=== PATIENT | female | born 1935 | race Caucasian/White ===

== ENCOUNTER → 2017-04-23 | Outpatient (CLI) | payer MEDICAID, MEDICARE ==
[~2017-04-23] MED LIST: AMLO10TA2 PO; ASPI-515 PO; CHOL5000 PO; CYAN100074 PO; DEXL60CA2 PO; GLIM1TAB2 PO; KRIL500C PO; L.AC1CAP6 PO; UBID50TA3 PO; VITA400C42 PO; biotin PO; magnesium PO; potassium PO
== END | disposition home or self-care (01) ==
LOC: CFH 13:53
PROVIDERS: ATTEND Internal Medicine Cardiovascular Disease
DX: I08.2 Rheumatic disorders of both aortic and tricuspid valves (principal); I10 Essential (primary) hypertension; Z95.5 Presence of coronary angioplasty implant and graft; Z87.891 Personal history of nicotine dependence
CPT/HCPCS: 93306

== ENCOUNTER → 2018-01-08 | Outpatient (CLI) | payer MEDICARE | END | disposition home or self-care (01) | LOC: CFH 07:37 | PROVIDERS: ATTEND Internal Medicine Gastroenterology | DX: K21.9 Gastro-esophageal reflux disease without esophagitis (principal); R10.13 Epigastric pain | CPT/HCPCS: 76700 ==

== ENCOUNTER → 2018-02-05 | Outpatient (CLI) | payer MEDICARE ==
[~2018-02-05] MED LIST changes: -AMLO10TA2 PO; +AMLO10TA6 PO
== END | disposition home or self-care (01) ==
LOC: PETCFH 08:24
PROVIDERS: ATTEND Internal Medicine Gastroenterology
DX: R93.3 Abnormal findings on diagnostic imaging of other parts of digestive tract (principal)
CPT/HCPCS: 78264; A9541

== ENCOUNTER 2018-04-13 09:48 | Emergency (ER) | payer MEDICARE ==
[~2018-04-13] VITALS: Ht 162.6 cm; Wt 58.1 kg
[2018-04-13] MEDS ORDERED: SODIUM CHLORIDE FLUSH 10ML SYR IVF ONE (11:00)
[2018-04-13] MEDS ORDERED: ASPIRIN 81 MG TABLET CHEW PO ONE (11:00)
[2018-04-13] MEDS ORDERED: NITROGLYCERIN SINGLE TAB 0.4 MG SL PRN (11:00)
[2018-04-13] MEDS ORDERED: ASPIRIN 81 MG TABLET CHEW ONE (11:06)
[2018-04-13 11:12] LABS: ALANINE AMINOTRANSFERASE 16 U/L (12-78); ALBUMIN 3.8 g/dL (3.4-5.0); ANION GAP 9 mmol/L (5-15); CALCIUM 10.4 mg/dL (8.5-10.1); CHLORIDE 107 mmol/L (98-107); CREATININE 0.75 mg/dL (0.55-1.02)
[2018-04-13 11:14] LABS: INTERNATIONAL NORMALIZED RATIO 0.96 (0.93-1.1)
[2018-04-13 11:16] LABS: ALKALINE PHOSPHATASE 142 U/L (45-117); BILIRUBIN,TOTAL 0.5 mg/dL (0.2-1.0); TOTAL PROTEIN 7.3 g/dL (6.4-8.2); TROPONIN I < 0.015 ng/mL (0.000-0.045)
[2018-04-13] MEDS ORDERED: NITROGLYCERIN SINGLE TAB 0.4 MG SL ONE (11:36)
[2018-04-13 11:39] LABS: BASOPHILS # (AUTO) 0.03 x10^3/uL (0-0.1); BASOPHILS % (AUTO) 0 % (0-1); EOSINOPHILS # (AUTO) 0.11 x10^3/uL (0-0.4); EOSINOPHILS % (AUTO) 2 % (1-7); LYMPHOCYTES # (AUTO) 1.94 x10^3/uL (1-3.4); LYMPHOCYTES % (AUTO) 29 % (22-44); MD NO; MEAN CORPUSCULAR HEMOGLOBIN 31.9 pg (27.0-34.8); MEAN CORPUSCULAR HGB CONC 34.7 g/dL (32.4-35.8); MEAN CORPUSCULAR VOLUME 91.9 fL (80-100); MEAN PLATELET VOLUME 9.7 fL (7.4-10.4); MONOCYTES # (AUTO) 0.49 x10^3/uL (0.2-0.8); MONOCYTES % (AUTO) 7 % (2-9); NEUTROPHILS # (AUTO) 4.21 x10^3/uL (1.8-6.8); NEUTROPHILS % (AUTO) 62 % (42-75); PLATELET COUNT 311 x10^3/uL (130-400); RED BLOOD COUNT 4.41 x10^6/uL (3.82-5.3); RED CELL DISTRIBUTION WIDTH 13.3 % (9.6-15.2)
[2018-04-13 11:53] VITALS: BP 166/75
== END 2018-04-13 12:48 | disposition home or self-care (01) ==
LOC: ED 12:42
DX: R07.89 Other chest pain (principal); J06.9 Acute upper respiratory infection, unspecified; R06.00 Dyspnea, unspecified; I25.2 Old myocardial infarction; I25.10 Atherosclerotic heart disease of native coronary artery without angina pectoris; I10 Essential (primary) hypertension; E11.9 Type 2 diabetes mellitus without complications
CPT/HCPCS: 36415; 71045; 80053; 83880; 84484; 85025; 85610; 85730; 93005; 99285

== ENCOUNTER → 2018-04-15 | Outpatient (CLI) | payer MEDICARE | END | disposition home or self-care (01) | LOC: CFH 15:33 | PROVIDERS: ATTEND Internal Medicine Cardiovascular Disease | DX: I35.0 Nonrheumatic aortic (valve) stenosis (principal); I10 Essential (primary) hypertension; I25.2 Old myocardial infarction; I25.10 Atherosclerotic heart disease of native coronary artery without angina pectoris; E11.8 Type 2 diabetes mellitus with unspecified complications; Z87.891 Personal history of nicotine dependence | CPT/HCPCS: 93306 ==

== ENCOUNTER 2018-04-23 13:21 | Emergency (ER) | payer MEDICARE ==
[~2018-04-23] VITALS: Ht 162.6 cm; Wt 55.0 kg
[2018-04-23] MEDS ORDERED: SODIUM CHLORIDE FLUSH 10ML SYR IVF ONE (14:00)
[2018-04-23 14:03] LABS: BASOPHILS # (AUTO) 0.06 x10^3/uL (0-0.1); BASOPHILS % (AUTO) 1 % (0-1); EOSINOPHILS # (AUTO) 0.02 x10^3/uL (0-0.4); EOSINOPHILS % (AUTO) 0 % (1-7); LYMPHOCYTES # (AUTO) 1.88 x10^3/uL (1-3.4); LYMPHOCYTES % (AUTO) 18 % (22-44); MD NO; MEAN CORPUSCULAR HEMOGLOBIN 31.4 pg (27.0-34.8); MEAN CORPUSCULAR HGB CONC 34.2 g/dL (32.4-35.8); MEAN CORPUSCULAR VOLUME 91.8 fL (80-100); MEAN PLATELET VOLUME 9.5 fL (7.4-10.4); MONOCYTES % (AUTO) 7 % (2-9); NEUTROPHILS # (AUTO) 7.96 x10^3/uL (1.8-6.8); NEUTROPHILS % (AUTO) 74 % (42-75); PLATELET COUNT 376 x10^3/uL (130-400); RED BLOOD COUNT 5.02 x10^6/uL (3.82-5.3); RED CELL DISTRIBUTION WIDTH 13.2 % (9.6-15.2)
[2018-04-23 14:13] LABS: ALANINE AMINOTRANSFERASE 16 U/L (12-78); ALBUMIN 3.9 g/dL (3.4-5.0); ANION GAP 11 mmol/L (5-15); CALCIUM 10.9 mg/dL (8.5-10.1); CHLORIDE 101 mmol/L (98-107); CREATININE 1.13 mg/dL (0.55-1.02)
[2018-04-23 14:18] LABS: ALKALINE PHOSPHATASE 153 U/L (45-117); BILIRUBIN,TOTAL 0.6 mg/dL (0.2-1.0); TROPONIN I 0.052 ng/mL (0.000-0.045)
[2018-04-23] MEDS ORDERED: OMNIPAQUE 350 MG/ML, 100ML BOTTLE ONE (14:20)
[2018-04-23 16:00] VITALS: BP 152/77
== END 2018-04-23 16:02 | disposition home or self-care (01) ==
LOC: ED 13:37
DX: R06.00 Dyspnea, unspecified (principal); C34.32 Malignant neoplasm of lower lobe, left bronchus or lung; E11.9 Type 2 diabetes mellitus without complications; I10 Essential (primary) hypertension; I25.2 Old myocardial infarction; I25.10 Atherosclerotic heart disease of native coronary artery without angina pectoris
CPT/HCPCS: 36415; 71045; 71275; 80053; 83880; 84484; 85025; 93005; 99284; Q9967

== ENCOUNTER 2018-05-07 10:47 | Day surgery (SDC) | payer MEDICARE ==
[~2018-05-07] VITALS: Ht 162.6 cm; Wt 55.0 kg
[2018-05-07] MEDS ORDERED: SODIUM CHLORIDE 0.9% 1,000 ML IV SCH (11:30)
[2018-05-07 12:03] VITALS: BP 176/74
[2018-05-07] MEDS ORDERED: TURM538C PO (12:03)
[2018-05-07] MEDS ORDERED: LOSARTAN POTASSIUM PO (12:11)
[2018-05-07] MEDS ORDERED: FENTANYL PF 100 MCG/2ML ONE ×2 (12:41→12:42)
[2018-05-07] MEDS ORDERED: MIDAZOLAM 1 MG/ML, 5ML ONE (12:41)
[2018-05-07] MEDS ORDERED: LIDOCAINE 2%, 20ML ONE (15:03)
== END 2018-05-07 15:50 | disposition home or self-care (01) ==
LOC: OUT 10:47
PROVIDERS: ATTEND Internal Medicine
DX: C34.02 Malignant neoplasm of left main bronchus (principal); I10 Essential (primary) hypertension; I25.10 Atherosclerotic heart disease of native coronary artery without angina pectoris; I35.0 Nonrheumatic aortic (valve) stenosis; Z87.891 Personal history of nicotine dependence; F10.21 Alcohol dependence, in remission; Z79.82 Long term (current) use of aspirin; Z79.899 Other long term (current) drug therapy; Z88.6 Allergy status to analgesic agent; Z98.890 Other specified postprocedural states; Z95.5 Presence of coronary angioplasty implant and graft
CPT/HCPCS: 31625; 82962; 88172; 88173; 88305; 99152; 99153; J2250; J3010; J3490; J7030

== ENCOUNTER → 2018-05-14 | Outpatient (CLI) | payer MEDICARE, OTHER ==
[~2018-05-14] MED LIST changes: +LOSARTAN POTASSIUM PO; +TURM538C PO
== END | disposition home or self-care (01) ==
LOC: ROC 08:48
PROVIDERS: ATTEND Radiology Radiation Oncology
DX: C34.90 Malignant neoplasm of unspecified part of unspecified bronchus or lung (principal); I25.10 Atherosclerotic heart disease of native coronary artery without angina pectoris; M19.90 Unspecified osteoarthritis, unspecified site; E11.9 Type 2 diabetes mellitus without complications; K21.9 Gastro-esophageal reflux disease without esophagitis; M81.0 Age-related osteoporosis without current pathological fracture; R63.0 Anorexia; R53.83 Other fatigue
CPT/HCPCS: 99214; G0463

== ENCOUNTER → 2018-05-22 | Outpatient (CLI) | payer MEDICARE ==
[~2018-05-22] MED LIST changes: +GADOBUTROL 7.5 MMOL/7.5 ML PFS ONE
== END | disposition home or self-care (01) ==
LOC: RAD 16:28
PROVIDERS: ATTEND Internal Medicine
DX: G31.9 Degenerative disease of nervous system, unspecified (principal); C34.32 Malignant neoplasm of lower lobe, left bronchus or lung; R91.8 Other nonspecific abnormal finding of lung field; I50.9 Heart failure, unspecified; E11.9 Type 2 diabetes mellitus without complications
CPT/HCPCS: 70553; A9585

== ENCOUNTER 2018-06-03 10:23 | Day surgery (SDC) | payer MEDICARE ==
[~2018-06-03] VITALS: Ht 152.4 cm; Wt 54.4 kg
[~2018-06-03 10:23] MED LIST changes: -GADOBUTROL 7.5 MMOL/7.5 ML PFS ONE
[2018-06-03 10:56] VITALS: BP 166/74
[2018-06-03] MEDS ORDERED: SODIUM CHLORIDE 0.9% 1,000 ML IV SCH (11:00)
[2018-06-03] MEDS ORDERED: CEFAZOLIN PMX 1GM/50ML 50 ML IV ONE (11:00)
[2018-06-03] MEDS ORDERED: LIDOCAINE-MPF 1%, 5ML ONE (11:23)
[2018-06-03] MEDS ORDERED: NALOXONE 1 MG/ML, 2ML ONE (13:21)
[2018-06-03] MEDS ORDERED: MIDAZOLAM 1 MG/ML, 5ML ONE (13:21)
[2018-06-03] MEDS ORDERED: FLUMAZENIL 0.1 MG/1 ML, 5ML ONE (13:21)
[2018-06-03] MEDS ORDERED: FENTANYL PF 100 MCG/2ML ONE (13:21)
== END 2018-06-03 16:15 | disposition home or self-care (01) ==
LOC: OUT 10:23
PROVIDERS: ATTEND Internal Medicine Hematology & Oncology
DX: Z45.2 Encounter for adjustment and management of vascular access device (principal); C34.90 Malignant neoplasm of unspecified part of unspecified bronchus or lung; I25.10 Atherosclerotic heart disease of native coronary artery without angina pectoris; I35.0 Nonrheumatic aortic (valve) stenosis; I10 Essential (primary) hypertension; E11.9 Type 2 diabetes mellitus without complications; Z79.82 Long term (current) use of aspirin; Z79.899 Other long term (current) drug therapy; Z88.6 Allergy status to analgesic agent; Z98.890 Other specified postprocedural states
CPT/HCPCS: 36561; 76937; 77001; 99156; 99157; C1788; C1894; J0690; J1642; J2250; J3010; J7030; J2310

== ENCOUNTER 2018-08-07 07:34 | Outpatient (CLI) | payer MEDICARE ==
[~2018-08-07 07:34] MED LIST changes: -AMLO10TA6 PO; +AMLO10TA8 PO
== END 2018-08-07 23:59 | disposition home or self-care (01) ==
LOC: ROC 07:34
PROVIDERS: ATTEND Radiology Radiation Oncology
DX: Z08 Encounter for follow-up examination after completed treatment for malignant neoplasm (principal); C34.32 Malignant neoplasm of lower lobe, left bronchus or lung
CPT/HCPCS: 99212; G0463

== ENCOUNTER 2018-08-24 10:11 | Outpatient (CLI) | payer MEDICARE | END 2018-08-24 23:59 | disposition home or self-care (01) | LOC: CVU 10:11 | PROVIDERS: ATTEND Internal Medicine Cardiovascular Disease | DX: Z02.9 Encounter for administrative examinations, unspecified (principal) ==

== ENCOUNTER → 2018-09-09 | Outpatient (CLI) | payer MEDICARE ==
[~2018-09-09] MED LIST changes: +OMNIPAQUE 350 MG/ML, 100ML BOTTLE ONE
== END | disposition home or self-care (01) ==
LOC: CFH 09:09
PROVIDERS: ATTEND Internal Medicine Hematology & Oncology
DX: M48.54XA Collapsed vertebra, not elsewhere classified, thoracic region, initial encounter for fracture (principal); M51.36 Other intervertebral disc degeneration, lumbar region; K44.9 Diaphragmatic hernia without obstruction or gangrene; C34.82 Malignant neoplasm of overlapping sites of left bronchus and lung
CPT/HCPCS: 71260; 74177; Q9967

== ENCOUNTER → 2018-10-01 | Outpatient (CLI) | payer MEDICARE ==
[~2018-10-01] MED LIST changes: -OMNIPAQUE 350 MG/ML, 100ML BOTTLE ONE
== END | disposition home or self-care (01) ==
LOC: RAD 16:25
PROVIDERS: ATTEND Internal Medicine Hematology & Oncology
DX: C34.31 Malignant neoplasm of lower lobe, right bronchus or lung (principal); R60.0 Localized edema

== ENCOUNTER → 2018-10-14 | Outpatient (CLI) | payer MEDICARE | END | disposition home or self-care (01) | LOC: RAD 12:10 | PROVIDERS: ATTEND Internal Medicine Hematology & Oncology | DX: C34.82 Malignant neoplasm of overlapping sites of left bronchus and lung (principal); R91.8 Other nonspecific abnormal finding of lung field; K44.9 Diaphragmatic hernia without obstruction or gangrene | CPT/HCPCS: 71046 ==

== ENCOUNTER → 2018-11-09 | Outpatient (CLI) | payer MEDICARE | END | disposition home or self-care (01) | LOC: ROC 09:53 → EDSTATUS 06-01 16:42 | PROVIDERS: ATTEND Radiology Radiation Oncology | DX: C34.32 Malignant neoplasm of lower lobe, left bronchus or lung (principal); Z79.899 Other long term (current) drug therapy | CPT/HCPCS: 99212; G0463 ==

== ENCOUNTER 2019-01-04 11:58 | Outpatient (CLI) | payer MEDICARE | END 2019-01-04 23:59 | disposition home or self-care (01) | LOC: CFH 11:58 | PROVIDERS: ATTEND Internal Medicine Hematology & Oncology | DX: C34.82 Malignant neoplasm of overlapping sites of left bronchus and lung (principal); J90 Pleural effusion, not elsewhere classified; K44.9 Diaphragmatic hernia without obstruction or gangrene; R59.0 Localized enlarged lymph nodes; R91.8 Other nonspecific abnormal finding of lung field; M48.54XA Collapsed vertebra, not elsewhere classified, thoracic region, initial encounter for fracture | CPT/HCPCS: 71260; 74177; Q9967 ==

== ENCOUNTER 2019-01-10 10:43 | Emergency (ER) | payer MEDICARE ==
[~2019-01-10] VITALS: Ht 154.9 cm; Wt 47.8 kg
[2019-01-10 12:20] VITALS: BP 123/69
== END 2019-01-10 13:09 | disposition home or self-care (01) ==
LOC: ED 11:34
DX: J15.9 Unspecified bacterial pneumonia (principal); J20.9 Acute bronchitis, unspecified; R07.2 Precordial pain; I25.10 Atherosclerotic heart disease of native coronary artery without angina pectoris; I10 Essential (primary) hypertension; E11.9 Type 2 diabetes mellitus without complications; I25.2 Old myocardial infarction; Z85.118 Personal history of other malignant neoplasm of bronchus and lung
CPT/HCPCS: 36415; 71045; 80048; 82040; 84484; 85025; 93005; 99284

== ENCOUNTER 2019-04-09 09:16 | Emergency (ER) | payer MEDICARE ==
[~2019-04-09] VITALS: Ht 154.9 cm; Wt 51.8 kg
[~2019-04-09 09:16] MED LIST changes: -GLIM1TAB2 PO; +GLIM1TAB3 PO
--- NOTE | 2019-04-09 09:56 | NUR ---
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
--- NOTE | 2019-04-09 10:20 | NUR ---
THIS IS A 84 YO FEMALE WHO PRESENTS TO THE ER C/O LEFT SIDED EPISTAXSIS THAT HAS NOW RESOLVED AND N/V THIS MORNING. PT HAS SLIGHTLY SHALLOW BREATHING, BUT REGULAR AND UNLABORED. PT ABLE TO SPEAK IN FULL 5-7 WORD SENTENCES W/O DIFFICULTY. PT CURRENTLY DENIES NAUSEA. PT AO X 4. SKIN PWD. PT ON CONT BP, CARDIAC AND O2 MONITORS. CALL LIGHT WITHIN REACH.
[2019-04-09] MEDS ORDERED: SODIUM CHLORIDE FLUSH 10ML SYR IVF ONE (10:30)
--- NOTE | 2019-04-09 11:08 | NUR ---
PT CURRENTLY RESTING ON GURNEY. NAD NOTED. SKIN PWD. RESP SLIGHTLY SHALLOW, BUT EVEN AND UNLABORED. PT AWARE WE ARE WAITING FOR LAB/IMAGING RESULTS. FAMILY AT BEDSIDE. PT ON CONT BP, CARDIAC AND O2 MONITORS. CALL LIGHT WITHIN REACH. WILL CONT TO MONITOR PT.
[2019-04-09 11:24] LABS: MEAN CORPUSCULAR HEMOGLOBIN 32.2 pg (27.0-34.8); MEAN CORPUSCULAR HGB CONC 33.5 g/dL (32.4-35.8); MEAN CORPUSCULAR VOLUME 96.2 fL (80-100); MEAN PLATELET VOLUME 7.9 fL (7.4-10.4); PLATELET COUNT 220 x10^3/uL (130-400); RED BLOOD COUNT 3.71 x10^6/uL (3.82-5.3); RED CELL DISTRIBUTION WIDTH 15.4 % (9.6-15.2)
[2019-04-09 11:28] LABS: INTERNATIONAL NORMALIZED RATIO 0.95 (0.93-1.1)
[2019-04-09 11:30] LABS: ALBUMIN 3.5 g/dL (3.4-5.0); ANION GAP 6 mmol/L (5-15); CHLORIDE 108 mmol/L (98-107)
[2019-04-09 11:37] LABS: CREATININE 0.52 mg/dL (0.55-1.02); TROPONIN I < 0.015 ng/mL (0.000-0.045)
[2019-04-09 12:09] LABS: MD YES
[2019-04-09 12:13] LABS: BAND#(MANUAL) 0.57 x10^3/uL; BANDS%(MANUAL) 22 % (0-7); EOS#(MANUAL) 0.08 x10^3/uL (0.0-0.4); EOS% (MANUAL) 3 % (1-7); LYMPH#(MANUAL) 0.36 x10^3/uL (1-3.4); LYMPHS% (MANUAL) 14 % (22-44); MONOS#(MANUAL) 0.31 x10^3/uL (0.3-2.7); MONOS% (MANUAL) 12 % (2-9); SEG#(MANUAL) 1.27 x10^3/uL (1.8-6.8); SEGS% (MANUAL) 49 % (42-75)
[2019-04-09 12:14] LABS: <RBC MORPHOLOGY> NORMAL
[2019-04-09 12:15] LABS: <PLATELET ESTIMATE> ADEQUATE; <PLT MORPHOLOGY> NORMAL PLT MORPH
--- NOTE | 2019-04-09 12:19 | NUR ---
PT TO IMAGING VIA [facility] AT THIS TIME.
--- NOTE | 2019-04-09 13:30 | NUR ---
PT CURRENTLY RESTING ON GURNEY. NAD NOTED. SKIN PWD. RESP EVEN AND UNLABORED. PT AO X 4. FAMILY AT BEDSIDE. PT AWARE THAT WE ARE WAITING FOR IR. PT AWARE SHE IS NOT TO EAT AND DRINK PRIOR TO THORACENTESIS. DENIES OTHER NEEDS. PT ON CONT BP, CARDIAC AND O2 MONITORS. CALL LIGHT WITHIN REACH. WILL CONT TO MONITOR PT.
[2019-04-09] MEDS ORDERED: LIDOCAINE 1%, 10ML ONE (13:46)
--- NOTE | 2019-04-09 14:22 | NUR ---
PT TO IR AT THIS TIME.
[2019-04-09 15:33] VITALS: BP 121/74
== END 2019-04-09 15:35 | disposition home or self-care (01) ==
LOC: ED 12:47
DX: C34.92 Malignant neoplasm of unspecified part of left bronchus or lung (principal); J91.0 Malignant pleural effusion; I10 Essential (primary) hypertension; E11.9 Type 2 diabetes mellitus without complications; I25.2 Old myocardial infarction; I25.10 Atherosclerotic heart disease of native coronary artery without angina pectoris
CPT/HCPCS: 32555; 36415; 71275; 80048; 82040; 82945; 83615; 84157; 84484; 85025; 85610; 87070; 87102; 87205; 88112; 88305; 89051; 93005; 99285; J3490; 88341; 88342; 99284

== ENCOUNTER → 2019-04-16 | Outpatient (CLI) | payer MEDICARE ==
[~2019-04-16] MED LIST changes: +GADOTERATE 10 MMOL/20 ML SYR ONE; +OMNIPAQUE 350 MG/ML, 100ML BOTTLE ONE
== END | disposition home or self-care (01) ==
LOC: CFH 12:47
PROVIDERS: ATTEND Internal Medicine Hematology & Oncology
DX: J32.0 Chronic maxillary sinusitis (principal); C34.82 Malignant neoplasm of overlapping sites of left bronchus and lung; R51 Headache; R42 Dizziness and giddiness; G31.9 Degenerative disease of nervous system, unspecified; H70.891 Other mastoiditis and related conditions, right ear; K44.9 Diaphragmatic hernia without obstruction or gangrene; M43.9 Deforming dorsopathy, unspecified; M85.80 Other specified disorders of bone density and structure, unspecified site; M51.36 Other intervertebral disc degeneration, lumbar region; I70.0 Atherosclerosis of aorta; J90 Pleural effusion, not elsewhere classified; F10.20 Alcohol dependence, uncomplicated; Z87.891 Personal history of nicotine dependence
CPT/HCPCS: 70553; 74177; A9575; Q9967

== ENCOUNTER → 2019-05-31 | Outpatient (CLI) | payer MEDICARE ==
[~2019-05-31] MED LIST changes: -GADOTERATE 10 MMOL/20 ML SYR ONE; -OMNIPAQUE 350 MG/ML, 100ML BOTTLE ONE
== END | disposition home or self-care (01) ==
LOC: ROC 10:16
PROVIDERS: ATTEND Radiology Radiation Oncology
DX: C34.32 Malignant neoplasm of lower lobe, left bronchus or lung (principal); Z88.5 Allergy status to narcotic agent; Z88.8 Allergy status to other drugs, medicaments and biological substances
CPT/HCPCS: 99212; G0463

== ENCOUNTER → 2019-07-07 | Outpatient (CLI) | payer MEDICARE ==
[~2019-07-07] MED LIST changes: -GLIM1TAB3 PO; +GLIM1TAB7 PO; +VITA-74 PO; -VITA400C42 PO
== END | disposition home or self-care (01) ==
LOC: CVU 15:43
PROVIDERS: ATTEND Internal Medicine Cardiovascular Disease
DX: I65.23 Occlusion and stenosis of bilateral carotid arteries (principal); C34.90 Malignant neoplasm of unspecified part of unspecified bronchus or lung; I25.10 Atherosclerotic heart disease of native coronary artery without angina pectoris; I70.91 Generalized atherosclerosis
CPT/HCPCS: 93880

== ENCOUNTER → 2019-07-09 | Outpatient (CLI) | payer MEDICARE | END | disposition home or self-care (01) | LOC: CVU 08:33 | PROVIDERS: ATTEND Internal Medicine Cardiovascular Disease | DX: I08.2 Rheumatic disorders of both aortic and tricuspid valves (principal); I11.9 Hypertensive heart disease without heart failure; I70.0 Atherosclerosis of aorta; J90 Pleural effusion, not elsewhere classified; Z85.118 Personal history of other malignant neoplasm of bronchus and lung | CPT/HCPCS: 93306 ==

== ENCOUNTER → 2019-07-30 | Outpatient (CLI) | payer MEDICARE ==
[~2019-07-30] MED LIST changes: +OMNIPAQUE 350 MG/ML, 100ML BOTTLE ONE
== END | disposition home or self-care (01) ==
LOC: CFH 13:23
PROVIDERS: ATTEND Internal Medicine Hematology & Oncology
DX: C34.82 Malignant neoplasm of overlapping sites of left bronchus and lung (principal); S32.029A Unspecified fracture of second lumbar vertebra, initial encounter for closed fracture; S22.088A Other fracture of T11-T12 vertebra, initial encounter for closed fracture; K44.9 Diaphragmatic hernia without obstruction or gangrene; I70.0 Atherosclerosis of aorta; J90 Pleural effusion, not elsewhere classified; J47.9 Bronchiectasis, uncomplicated; J81.1 Chronic pulmonary edema; I31.3 Pericardial effusion (noninflammatory); I25.10 Atherosclerotic heart disease of native coronary artery without angina pectoris; I51.7 Cardiomegaly; X58.XXXA Exposure to other specified factors, initial encounter; Y93.89 Activity, other specified; Y92.89 Other specified places as the place of occurrence of the external cause; Y99.8 Other external cause status
CPT/HCPCS: 71260; 74177; Q9967

== ENCOUNTER → 2019-10-26 | Outpatient (CLI) | payer MEDICARE ==
[~2019-10-26] MED LIST changes: -OMNIPAQUE 350 MG/ML, 100ML BOTTLE ONE; +OMNIPAQUE 350 MG/ML, 75ML BOTTLE ONE
== END | disposition home or self-care (01) ==
LOC: CFH 08:46
PROVIDERS: ATTEND Internal Medicine Hematology & Oncology
DX: C34.82 Malignant neoplasm of overlapping sites of left bronchus and lung (principal); J90 Pleural effusion, not elsewhere classified
CPT/HCPCS: 71260; Q9967

== ENCOUNTER 2019-11-15 11:03 | Outpatient (CLI) | payer MEDICARE ==
[~2019-11-15 11:03] MED LIST changes: -OMNIPAQUE 350 MG/ML, 75ML BOTTLE ONE
== END 2019-11-15 23:59 | disposition home or self-care (01) ==
LOC: ROC 11:03
PROVIDERS: ATTEND Radiology Radiation Oncology
DX: Z08 Encounter for follow-up examination after completed treatment for malignant neoplasm (principal); C34.32 Malignant neoplasm of lower lobe, left bronchus or lung
CPT/HCPCS: 99212; G0463

== ENCOUNTER → 2020-01-27 | Outpatient (CLI) | payer MEDICARE ==
[~2020-01-27] MED LIST changes: +OMNIPAQUE 350 MG/ML, 75ML BOTTLE ONE
== END | disposition home or self-care (01) ==
LOC: RAD 10:28
PROVIDERS: ATTEND Internal Medicine Hematology & Oncology
DX: C34.82 Malignant neoplasm of overlapping sites of left bronchus and lung (principal); J90 Pleural effusion, not elsewhere classified; J47.9 Bronchiectasis, uncomplicated; M48.54XA Collapsed vertebra, not elsewhere classified, thoracic region, initial encounter for fracture; K44.9 Diaphragmatic hernia without obstruction or gangrene; M41.85 Other forms of scoliosis, thoracolumbar region
CPT/HCPCS: 71260; 78306; A9503; Q9967

== ENCOUNTER 2020-02-18 18:30 | Emergency (ER) | payer MEDICARE ==
[~2020-02-18] VITALS: Ht 154.9 cm; Wt 50.0 kg
[~2020-02-18 18:30] MED LIST changes: -OMNIPAQUE 350 MG/ML, 75ML BOTTLE ONE
[2020-02-18] MEDS ORDERED: OXYMETAZOLINE NASAL SPRAY 0.05%,30ML ONE (18:37)
--- NOTE | 2020-02-18 18:41 | NUR ---
THIS IS A PLEASANT 85 YO F BIB EMS W/ C/O NOSEBLEED SINCE 1430. PT REPORTS HX OF SAME. PT PRESENTS W/ NOSE CLAMP ON FROM HOME. PT AMBULATED FROM AMBULANCE TO ROOM INDEPENDENTLY W/ A STEADY GAIT. PT RESTING ON GURNEY W/ CALL LIGHT IN REACH AND FAMILY AT BEDSIDE. PT TACHYCARDIC AND TACHYPNEIC, OTHER VS WDL. PT REPORTS HX OF TERMINAL LUNG CANCER AND INTERMITENT HTN. MARYAN DAVENPORT AT BEDSIDE.
--- NOTE | 2020-02-18 18:52 | NUR ---
REPORT GIVEN TO GEMA MEZA. PT RESTING ON GURNEY W/ CALL LIGHT IN REACH AND FAMILY AT BEDSIDE, JANICE.
[2020-02-18 19:21] VITALS: BP 124/76
== END 2020-02-18 19:23 | disposition home or self-care (01) ==
LOC: ED 18:45
DX: R04.0 Epistaxis (principal); I25.2 Old myocardial infarction; E11.9 Type 2 diabetes mellitus without complications; I25.10 Atherosclerotic heart disease of native coronary artery without angina pectoris; I10 Essential (primary) hypertension; Z87.891 Personal history of nicotine dependence; Z85.118 Personal history of other malignant neoplasm of bronchus and lung
CPT/HCPCS: 99283

== ENCOUNTER → 2020-04-03 | Outpatient (CLI) | payer MEDICARE ==
[~2020-04-03] MED LIST changes: +AMLO-211 PO; -AMLO10TA8 PO
== END | disposition home or self-care (01) ==
LOC: CFH 13:12
PROVIDERS: ATTEND Internal Medicine Cardiovascular Disease
DX: I08.3 Combined rheumatic disorders of mitral, aortic and tricuspid valves (principal)
CPT/HCPCS: 93306

== ENCOUNTER → 2020-08-23 | Outpatient (CLI) | payer MEDICARE ==
[~2020-08-23] MED LIST changes: -ASPI-515 PO; +ASPI-963 PO; +OMNIPAQUE 350 MG/ML, 75ML BOTTLE ONE
== END | disposition home or self-care (01) ==
LOC: CFH 13:29
PROVIDERS: ATTEND Internal Medicine Hematology & Oncology
DX: C34.82 Malignant neoplasm of overlapping sites of left bronchus and lung (principal); J90 Pleural effusion, not elsewhere classified
CPT/HCPCS: 71260; Q9967

== ENCOUNTER → 2020-11-20 | Outpatient (CLI) | payer MEDICARE | END | disposition home or self-care (01) | LOC: RAD 09:41 | PROVIDERS: ATTEND Internal Medicine Hematology & Oncology | DX: C34.82 Malignant neoplasm of overlapping sites of left bronchus and lung (principal); K44.9 Diaphragmatic hernia without obstruction or gangrene; J90 Pleural effusion, not elsewhere classified | CPT/HCPCS: 71260; Q9967 ==

== ENCOUNTER → 2021-02-28 | Outpatient (CLI) | payer MEDICARE | END | disposition home or self-care (01) | LOC: CFH 14:15 | PROVIDERS: ATTEND Internal Medicine Hematology & Oncology | DX: C34.82 Malignant neoplasm of overlapping sites of left bronchus and lung (principal); J90 Pleural effusion, not elsewhere classified; J98.4 Other disorders of lung; J84.10 Pulmonary fibrosis, unspecified; M50.30 Other cervical disc degeneration, unspecified cervical region; M47.812 Spondylosis without myelopathy or radiculopathy, cervical region; J34.89 Other specified disorders of nose and nasal sinuses; I65.23 Occlusion and stenosis of bilateral carotid arteries; J98.11 Atelectasis; R22.42 Localized swelling, mass and lump, left lower limb; Z51.11 Encounter for antineoplastic chemotherapy; Z51.12 Encounter for antineoplastic immunotherapy; E83.52 Hypercalcemia; Z45.2 Encounter for adjustment and management of vascular access device; Z79.899 Other long term (current) drug therapy | CPT/HCPCS: 70491; 71260; 82565; Q9967 ==